=== PATIENT | female | born 1965 | race Caucasian/White ===

== ENCOUNTER 2017-08-15 18:37 | Emergency (ER) | payer MEDICARE, MEDICAID ==
[2017-08-15] MEDS: SODIUM CHLORIDE 0.9% FLUSH 10 ML SOL IV PRN ×4 (18:50→19:50)
[2017-08-15] MEDS ORDERED: HYDROMORPHONE HCL 2 MG/ML SOL IV ONE ×2 (18:57→19:45)
[2017-08-15] MEDS ORDERED: HYDROMORPHONE HCL 2 MG/ML SOL ONE ×2 (18:59→19:36)
[2017-08-15 20:11] VITALS: RESP 20; TEMP 99.6
[2017-08-15] MEDS ORDERED: OXYCODONE HYDROCHLORIDE 5 MG TAB PO ONE (21:08)
[2017-08-15] MEDS ORDERED: OXYCODONE HYDROCHLORIDE 5 MG TAB ONE (21:15)
[2017-08-15 22:28] VITALS: BP 141/75; PULSE 74; O2SAT 93
== END 2017-08-15 22:15 | DRG 563 ==
LOC: ED 18:37
DX: S52.132A Displaced fracture of neck of left radius, initial encounter for closed fracture (principal); S52.122A Displaced fracture of head of left radius, initial encounter for closed fracture; W01.0XXA Fall on same level from slipping, tripping and stumbling without subsequent striking against object, initial encounter
CPT/HCPCS: 73070; 96374; 99284; 99285; J1170